=== PATIENT | male | born 1965 ===

== ENCOUNTER 2025-06-02 03:44 | Emergency (ER) | payer SELFPAY ==
[~2025-06-02] VITALS: Ht 152.4 cm; Wt 63.5 kg
[2025-06-02] MEDS ORDERED: ACET-2605 PO (05:10)
[2025-06-02 05:11] VITALS: BP 120/80; O2SAT 99
[2025-06-02] MEDS ORDERED: SODIUM PHOSPHATE MM 15 MMOL in IV NORMAL SALINE 250 ML IV ONE (05:15)
[2025-06-02] MEDS ORDERED: POTASSIUM CHLORIDE 20 MEQ POWDER PACKET NG SCH (05:15)
== END 2025-06-02 05:47 | disposition home or self-care (01) ==
LOC: ER 03:47
DX: J01.10 Acute frontal sinusitis, unspecified (principal)
CPT/HCPCS: 36415; 86850; 86900; 86901; 86920